=== PATIENT | male | born 1965 | race Caucasian/White ===

== ENCOUNTER 2019-09-07 11:50 | Inpatient (IN) | payer MEDICAID, OTHER ==
[~2019-09-07] VITALS: Ht 188 cm; Wt 110.2 kg
--- NOTE | 2019-09-07 12:00 | NUR ---
CAME IN FOR VOMITING SINCE 2 AM. ' ABDOMINAL PAIN.NAUSEA/VOMITING STARTED LAST NIGHT'. PATIENT DESCRIBED VOMIT DARK COLOR, COFFEE GROUND IN APPEARANCE AND DARK REDDISH BROWN IN APPEARANCE. PATIENT DIAPHORETIC UPON ARRIVAL IN ED. TO ER BED 9, HOOKED TO MONITOR, CHANGED TO HOSP GOWN, AWAITING MD FREDERICK.
--- NOTE | 2019-09-07 12:05 | NUR ---
EVALUATION MANAGER DEGRASSE AT BEDSIDE
[2019-09-07] MEDS ORDERED: ONDANSETRON HCL/PF 4 MG/2 ML VIAL ONE (12:17)
[2019-09-07] MEDS ORDERED: PANTOPRAZOLE 40 MG VIAL ONE (12:17)
[2019-09-07 12:20] LABS: BASOPHILS % (AUTO) 0.4 % (0.0-2.0); EOSINOPHILS % (AUTO) 0.2 % (0.0-6.0); HEMATOCRIT 47 % (39-51); HEMOGLOBIN 15.9 g/dL (13.5-17.5); LYMPHOCYTES # (AUTO) 1.3 /CMM (0.8-4.8); LYMPHOCYTES % (AUTO) 11.6 % (20.0-44.0); MEAN CORPUSCULAR HGB CONC 34 g/dl (31.0-36.0); MEAN CORPUSCULAR VOLUME 93 fL (80-96); MONOCYTES # (AUTO) 1.1 /CMM (0.1-1.30); MONOCYTES % (AUTO) 9.4 % (2.0-12.0); NEUTROPHILS # (AUTO) 8.8 /CMM (1.8-8.9); NEUTROPHILS % (AUTO) 78.4 % (43.0-81.0); PLATELET COUNT (AUTO) 218 /CMM (150-450); RED BLOOD CELL COUNT(AUTO) 5.02 MIL/uL (4.5-6.0); WHITE BLOOD COUNT (AUTO) 11.3 K/uL (4.3-11.0)
[2019-09-07 12:28] LABS: CALCIUM, SERUM 9.8 mg/dL (8.5-10.1); CREATININE 1.3 mg/dL (0.6-1.3); POTASSIUM 4.1 mmol/L (3.5-5.1)
[2019-09-07] MEDS ORDERED: PANTOPRAZOLE 40 MG VIAL IV ONE (12:30)
[2019-09-07] MEDS ORDERED: IV NS 0.9% 1,000 ML BAG IV ONE ×2 (12:30)
[2019-09-07] MEDS ORDERED: ONDANSETRON HCL/PF 4 MG/2 ML VIAL IVP ONE (12:30)
--- NOTE | 2019-09-07 12:31 | NUR ---
PHOTOGRAPHIC LITHOGRAPHER AT BEDSIDE
[2019-09-07 12:33] LABS: ALBUMIN 3.9 g/dL (3.4-5.0); BILIRUBIN,DIRECT 0.2 mg/dL (0.0-0.2); TOTAL PROTEIN, SERUM 7.4 g/dL (6.4-8.2)
--- NOTE | 2019-09-07 12:44 | NUR ---
[facility] paged for gi consult with Dr. Guo. Waiting for call back.
--- NOTE | 2019-09-07 12:57 | NUR ---
EPIC PAGED waiting for call back
[2019-09-07] MEDS ORDERED: [UNRECOGNIZED DRUG - OTHER] (13:12)
--- NOTE | 2019-09-07 13:15 | NUR ---
called rn sup for REINA bed 9 Addendum: 09/07/19 at 1315 by PARISH waiting for REINA bed assignment
--- NOTE | 2019-09-07 14:22 | NUR ---
REPORT GIVEN TO MALORIE
--- NOTE | 2019-09-07 15:10 | NUR ---
RN OPENING NOTES RECEIVED PATIENT A DIRECT ADMIN FROM THE ED. PT WAS BROUGHT IN VIA GURNEY BUT WAS ABLE TO WALK FROM HIS GURNEY TO HIS BED. HE IS AOX4, VERBAL, AND AMBULATORY. HE IS ON RA, TOLERATING WELL, NO S/SX OF RESP DISTRESS OR SOB. UPON AUSCULTATION, LUNG AKINS SOUND CLEAR, CHEST RISES AND FALLS EVENLY. BILATERAL UPPER AND LOWER EXTREMITIES ARE WNL. EYES ARE PERRLA. BOWELS SOUND HYPOACTIVE IN ALL 4 QUADRANTS, PT STAT PAIN OF 4/10 IN ABDOMEN. MD MADE AWARE OF PATIENT'S ARRIVAL, WAITING FOR ADMITTING ORDERS. SAFETY MEASURES HAVE BEEN IMPLEMENTED, CALL LIGHT IS WITHIN REACH, BED IS IN LOWEST AND LOCKED POSITION, SIDE RIALS UP X2, WILL CONTINUE TO MONITOR FOR ANY CHANGES.
[2019-09-07 16:00] VITALS: BP 136/88
[2019-09-07] MEDS ORDERED: MAGNESIUM HYDROXIDE 30 ML UDC PO PRN (16:30)
[2019-09-07] MEDS ORDERED: ACETAMINOPHEN 325 MG TABLET PO PRN (16:30)
[2019-09-07] MEDS ORDERED: HYDROCODONE/APAP 5/325MG 1 EACH TABLET PO PRN (16:30)
[2019-09-07] MEDS ORDERED: Z GUARD REMEDY 2 OZ OINT TP PRN (16:30)
[2019-09-07] MEDS ORDERED: ONDANSETRON HCL/PF 4 MG/2 ML VIAL IVP PRN (16:30)
[2019-09-07] MEDS ORDERED: MAG HYDROX/AL HYDROX/SIMETH 30 ML UDC PO PRN (16:30)
[2019-09-07] MEDS: IV D5/0.45 NACL 1,000 ML IV PRN (17:21)
[2019-09-07] MEDS: PANTOPRAZOLE 40 MG VIAL IV SCH (17:21)
--- NOTE | 2019-09-07 19:12 | NUR ---
RN CLOSING NOTES PATIENT IS RESTING COMFORTABLY IN BED, SHOWS NO S/SX OF RESP DISTRESS OR SOB. PT IS UPSET THAT HE CANNOT EAT ANYTHING BUT VERBALIZED HIS UNDERSTANDING TO WHY HIS DIET WAS ORDERED. PT IS SCHEDULED TO HAVE EGD TOMORROW AM. NO ACUTE CHANGES OCCURRED THROUGHOUT THE SHIFT, VITAL SIGNS ARE STABLE, PT NEEDS HAVE BEEN MET. SAFETY MEASURES HAVE BEEN IMPLEMENTED, CALL LIGHT IS WITHIN REACH, BED IS IN LOWEST AND LOCKED POSITION, SIDE RIALS UP X2, WILL ENDORSE TO NIGHTSHIFT RN FOR CONTINUITY OF CARE.
[2019-09-07 20:00] VITALS: BP 152/112
[2019-09-07] MEDS: ZOLPIDEM TARTRATE 5 MG TABLET PO PRN (22:38)
[2019-09-08] VITALS (7 sets, daily range): BP systolic 131–155; BP diastolic 84–112
[2019-09-08 06:23] LABS: CALCIUM, SERUM 8.7 mg/dL (8.5-10.1); CREATININE 1.1 mg/dL (0.6-1.3); MAGNESIUM 2.1 mg/dL (1.8-2.4); PHOSPHORUS 3.7 mg/dL (2.5-4.9); POTASSIUM 3.6 mmol/L (3.5-5.1)
[2019-09-08 06:54] LABS: BASOPHILS % (AUTO) 0.4 % (0.0-2.0); EOSINOPHILS % (AUTO) 2.3 % (0.0-6.0); HEMATOCRIT 40 % (39-51); HEMOGLOBIN 13.9 g/dL (13.5-17.5); LYMPHOCYTES # (AUTO) 2.1 /CMM (0.8-4.8); LYMPHOCYTES % (AUTO) 28.8 % (20.0-44.0); MEAN CORPUSCULAR HGB CONC 35 g/dl (31.0-36.0); MEAN CORPUSCULAR VOLUME 92 fL (80-96); MONOCYTES # (AUTO) 0.7 /CMM (0.1-1.30); MONOCYTES % (AUTO) 9.5 % (2.0-12.0); NEUTROPHILS # (AUTO) 4.4 /CMM (1.8-8.9); PLATELET COUNT (AUTO) 174 /CMM (150-450); RED BLOOD CELL COUNT(AUTO) 4.35 MIL/uL (4.5-6.0); WHITE BLOOD COUNT (AUTO) 7.5 K/uL (4.3-11.0)
[2019-09-08] MEDS: PANTOPRAZOLE 40 MG VIAL IV SCH ×2 (08:25→21:24)
[2019-09-08] MEDS ORDERED: MIDAZOLAM HCL 2 MG/2ML VIAL ONE (08:36)
[2019-09-08] MEDS ORDERED: EPINEPHRINE (1:10,000) SYRINGE 1 MG/10 ML DISP.SYRIN ONE (09:06)
[2019-09-08] MEDS ORDERED: HYDROMORPHONE 1 MG/1 ML DISP.SYRIN ONE (09:35)
[2019-09-08] MEDS ORDERED: ONDANSETRON HCL/PF 4 MG/2 ML VIAL ONE (10:00)
--- NOTE | 2019-09-08 11:34 | NUR ---
RECEIVED PATIENT BACK FROM EGD. AWAKE, ALERT, VITALS STABLE. NO ACUTE DISTRESS NOTED. ICE CHIPS GIVEN, ORDER TO ADVANCE DIET TOLERATED
[2019-09-08] MEDS: PROPRANOLOL HCL 10 MG TABLET PO SCH (16:37)
--- NOTE | 2019-09-08 19:00 | NUR ---
MS RN closing No episodes of vomiting noted today. Tolerated clear liquid diet with "a little bit" of nausea for lunch and dinner. Remains A/Ox4, asking for Ambien to help him sleep. BP noted to be elevated, see vitals. Skyla Shankar NP aware. Ambulated to bathroom. L AC 18G intact and patent. Endorsed to moises TOVAR for LILY Addendum: 09/08/19 at 1949 by MARIA DEL ROSARIO [place] RN patient denies taking HTN meds at home and is requesting prescription. Skyla Shankar NP aware, received new order for propranolol, patient educated on side effects/emergency symptoms to report. no chest pain or SOB noted
--- NOTE | 2019-09-08 19:05 | NUR ---
MS RN NOTE RECEIVED PT IN STABLE CONDITION A/O X4, CURRENTLY WATCHING TV. NO SIGNS OF SOB OR DISTRESS. NO COMPLAINTS OF PAIN OR N/V. IV IN LAC #[address] WITH IVF INFUSING. ALL CURRENT NEEDS ATTENDED. TO BED LOW, LOCKED, UPPER RAILS UP, AND CALL LIGHT WITHIN REACH. WILL CONT. TO MONITOR.
[2019-09-08] MEDS: ZOLPIDEM TARTRATE 5 MG TABLET PO PRN (21:31)
[2019-09-09] MEDS: IV D5/0.45 NACL 1,000 ML IV PRN (02:23)
[2019-09-09 04:00] VITALS: BP 134/90
--- NOTE | 2019-09-09 06:20 | NUR ---
MS RN NOTE PT REMAINS IN STABLE CONDITION A/O X4, CURRENTLY RESTING IN BED. NO SIGNS OF SOB OR DISTRESS. NO COMPLAINTS OF PAIN OR N/V. IV IN LAC #[address] WITH IVF INFUSING. ALL CURRENT NEEDS ATTENDED. TO BED LOW, LOCKED, UPPER RAILS UP, AND CALL LIGHT WITHIN REACH. WILL CONT. TO MONITOR AND ENDORSE TO NEXT SHIFT FOR LILY.
[2019-09-09 07:40] LABS: BASOPHILS % (AUTO) 0.6 % (0.0-2.0); EOSINOPHILS % (AUTO) 3.3 % (0.0-6.0); HEMATOCRIT 34 % (39-51); HEMOGLOBIN 11.4 g/dL (13.5-17.5); LYMPHOCYTES # (AUTO) 1.5 /CMM (0.8-4.8); LYMPHOCYTES % (AUTO) 27.7 % (20.0-44.0); MEAN CORPUSCULAR HGB CONC 34 g/dl (31.0-36.0); MEAN CORPUSCULAR VOLUME 93 fL (80-96); MONOCYTES # (AUTO) 0.6 /CMM (0.1-1.30); MONOCYTES % (AUTO) 12.3 % (2.0-12.0); NEUTROPHILS # (AUTO) 2.9 /CMM (1.8-8.9); NEUTROPHILS % (AUTO) 56.1 % (43.0-81.0); PLATELET COUNT (AUTO) 127 /CMM (150-450); RED BLOOD CELL COUNT(AUTO) 3.63 MIL/uL (4.5-6.0); WHITE BLOOD COUNT (AUTO) 5.2 K/uL (4.3-11.0)
[2019-09-09 07:41] LABS: CALCIUM, SERUM 8.3 mg/dL (8.5-10.1); CREATININE 0.9 mg/dL (0.6-1.3); MAGNESIUM 1.9 mg/dL (1.8-2.4); POTASSIUM 3.5 mmol/L (3.5-5.1)
[2019-09-09 08:00] VITALS: BP 154/98
[2019-09-09 08:58] VITALS: BP 154/98
[2019-09-09] MEDS: PROPRANOLOL HCL 10 MG TABLET PO SCH (08:58)
[2019-09-09] MEDS: PANTOPRAZOLE 40 MG VIAL IV SCH (08:59)
[2019-09-09] MEDS ORDERED: PROP10TA68 PO (09:30)
[2019-09-09] MEDS ORDERED: PANT40TA2 PO (09:30)
[2019-09-09] MEDS ORDERED: OMEP20TA20 PO (14:12)
--- NOTE | 2019-09-09 15:43 | NUR ---
rn notes PATIENT WAS DISCHARGED IN STABLE CONDITION ABLE TO WALK SAFELY. FRIEND WILL PICK HIM UP AT THE LOBBY. IV REMOVED. ID BAND REMOVED.
== END 2019-09-09 15:41 | disposition home or self-care (01) | DRG 242 ==
LOC: ER 11:53 → TELE-TD 14:34 → TELE1 20:51 → MEDSG1 09-08 10:18
PROVIDERS: ADMIT Hospitalist; ATTEND Nurse Practitioner Acute Care
DX: K22.6 Gastro-esophageal laceration-hemorrhage syndrome (principal); D72.829 Elevated white blood cell count, unspecified; F17.210 Nicotine dependence, cigarettes, uncomplicated; I10 Essential (primary) hypertension; K44.9 Diaphragmatic hernia without obstruction or gangrene; E66.9 Obesity, unspecified; Z68.31 Body mass index [BMI] 31.0-31.9, adult; T50.995A Adverse effect of other drugs, medicaments and biological substances, initial encounter; Y92.009 Unspecified place in unspecified non-institutional (private) residence as the place of occurrence of the external cause; F10.10 Alcohol abuse, uncomplicated; Z87.11 Personal history of peptic ulcer disease
CPT/HCPCS: 36415; 71045-TC; 80048-TC; 80061-TC; 80076-TC; 83690-TC; 83735-TC; 84100-TC; 84484-TC; 85025-TC; 85730-TC; 86850-TC; 87081-TC; C9113; G0378; J0171; J1170; J2250; J2405; J2704; J3490; J7030

== ENCOUNTER 2019-10-18 06:25 | Emergency (ER) | payer OTHER ==
[~2019-10-18] VITALS: Ht 185.4 cm; Wt 99.8 kg
[~2019-10-18 06:25] MED LIST: OMEP20TA20 PO; PROP10TA68 PO; [UNRECOGNIZED DRUG - OTHER]
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
[2019-10-18] MEDS ORDERED: AMLODIPINE BESYLATE 5 MG TABLET ONE (06:53)
[2019-10-18] MEDS ORDERED: AMLODIPINE BESYLATE 5 MG TABLET PO ONE (07:00)
[2019-10-18 07:16] LABS: BASOPHILS % (AUTO) 0.6 % (0.0-2.0); EOSINOPHILS % (AUTO) 1.1 % (0.0-6.0); HEMATOCRIT 46 % (39-51); HEMOGLOBIN 15.9 g/dL (13.5-17.5); LYMPHOCYTES # (AUTO) 1.3 /CMM (0.8-4.8); LYMPHOCYTES % (AUTO) 23.3 % (20.0-44.0); MEAN CORPUSCULAR HGB CONC 35 g/dl (31.0-36.0); MEAN CORPUSCULAR VOLUME 90 fL (80-96); MONOCYTES # (AUTO) 0.6 /CMM (0.1-1.30); NEUTROPHILS # (AUTO) 3.8 /CMM (1.8-8.9); PLATELET COUNT (AUTO) 201 /CMM (150-450); RED BLOOD CELL COUNT(AUTO) 5.08 MIL/uL (4.5-6.0); WHITE BLOOD COUNT (AUTO) 5.8 K/uL (4.3-11.0)
[2019-10-18 07:17] LABS: CALCIUM, SERUM 8.8 mg/dL (8.5-10.1); POTASSIUM 3.4 mmol/L (3.5-5.1)
[2019-10-18 07:23] LABS: BILIRUBIN,DIRECT 0.2 mg/dL (0.0-0.2); BILIRUBIN,TOTAL 0.7 mg/dL (0.2-1.0); TOTAL PROTEIN, SERUM 7.2 g/dL (6.4-8.2)
[2019-10-18] MEDS ORDERED: LORAZEPAM 1 MG TABLET ONE (07:39)
--- NOTE | 2019-10-18 07:42 | NUR ---
PATIENT AMBULATES INDEPENDENTLY.
[2019-10-18] MEDS ORDERED: LORAZEPAM 1 MG TABLET PO ONE (08:00)
[2019-10-18] MEDS ORDERED: CLONIDINE HCL 0.1 MG TABLET ONE (08:15)
[2019-10-18] MEDS ORDERED: CLONIDINE HCL 0.1 MG TABLET PO ONE (08:30)
--- NOTE | 2019-10-18 09:30 | NUR ---
PATIENT DENIES PAIN AT THIS TIME. MD AWARE OF RECENT BLOOD PRESSURE READINGS, OK TO BE DISCHARGED. PATIENT AGREED TO GO HOME AND TO FOLLOW UP WITH PRIMARY DOCTOR. Patient discharged to home in stable condition. Written and verbal after care instructions given. Patient verbalizes understanding of instruction.
[2019-10-18 09:31] VITALS: BP 180/99
[2020-02-26] MEDS ORDERED: SERT50TA PO (11:55)
[2020-02-26] MEDS ORDERED: ASPI-1169 PO (11:55)
[2020-02-26] MEDS ORDERED: NYST15CR2 TP (11:55)
[2020-02-26] MEDS ORDERED: ATOR40TA PO (11:55)
[2020-02-26] MEDS ORDERED: VALS80TA2 PO (11:55)
== END 2019-10-18 09:31 | disposition home or self-care (01) ==
LOC: ER 06:26
DX: I10 Essential (primary) hypertension (principal); R07.89 Other chest pain; R00.0 Tachycardia, unspecified; Z98.890 Other specified postprocedural states; Z60.2 Problems related to living alone; Z79.899 Other long term (current) drug therapy; Z88.8 Allergy status to other drugs, medicaments and biological substances
CPT/HCPCS: 36415; 71046; 80048-TC; 80076-TC; 84484-TC; 85025-TC

== ENCOUNTER 2020-02-01 15:08 | Emergency (ER) | payer OTHER ==
[~2020-02-01] VITALS: Ht 185.4 cm; Wt 113.4 kg
--- NOTE | 2020-02-01 15:12 | NUR ---
PATIENT SEEN AND EVALUATED BY DR. MARTINS
--- NOTE | 2020-02-01 15:15 | NUR ---
BIB ra c.o head lac s/p syncopal episode during deep breathing exercise. Patient a/ox4, breathing even and unlabored, head lac with mild bleeding at this time. Gauzed removed. needs attended kept comfortable.
[2020-02-01 15:31] LABS: BASOPHILS % (AUTO) 0.6 % (0.0-2.0); EOSINOPHILS % (AUTO) 2.2 % (0.0-6.0); HEMATOCRIT 48 % (39-51); HEMOGLOBIN 16.6 g/dL (13.5-17.5); LYMPHOCYTES # (AUTO) 1.4 /CMM (0.8-4.8); LYMPHOCYTES % (AUTO) 22.3 % (20.0-44.0); MEAN CORPUSCULAR HGB CONC 34 g/dl (31.0-36.0); MEAN CORPUSCULAR VOLUME 88 fL (80-96); MONOCYTES # (AUTO) 0.7 /CMM (0.1-1.30); MONOCYTES % (AUTO) 11.4 % (2.0-12.0); NEUTROPHILS % (AUTO) 63.5 % (43.0-81.0); PLATELET COUNT (AUTO) 113 /CMM (150-450); RED BLOOD CELL COUNT(AUTO) 5.52 MIL/uL (4.5-6.0); WHITE BLOOD COUNT (AUTO) 6.3 K/uL (4.3-11.0)
[2020-02-01 15:39] LABS: CALCIUM, SERUM 9.3 mg/dL (8.5-10.1); CARBON DIOXIDE 29 mmol/L (21-32); CHLORIDE 97 mmol/L (98-107); CREATININE 1.3 mg/dL (0.6-1.3); GLUCOSE 123 mg/dL (74-106); POTASSIUM 3.7 mmol/L (3.5-5.1); SODIUM SERUM 135 mmol/L (136-145); UREA NITROGEN, BLOOD 20 mg/dL (7-18)
[2020-02-01] MEDS ORDERED: LIDOCAINE 1%-EPI 1:100,000 20 ML VIAL ONE (15:54)
[2020-02-01] MEDS ORDERED: LIDOCAINE 1%-EPI 1:100,000 50 ML VIAL IJ ONE (16:00)
--- NOTE | 2020-02-01 17:06 | NUR ---
patient's head covered with clean dry dressing. [place] intact. Post suture/staple care instruction provided. Patient discharged to home in stable condition. Written and verbal after care instructions given. Patient verbalizes understanding of instruction. Patient denies dizziness or headache. No distress noted.
[2020-02-01 17:07] VITALS: BP 163/105
== END 2020-02-01 17:07 | disposition home or self-care (01) ==
LOC: ER 15:12
DX: S01.01XA Laceration without foreign body of scalp, initial encounter (principal); R55 Syncope and collapse; I10 Essential (primary) hypertension; Z98.890 Other specified postprocedural states; Z88.8 Allergy status to other drugs, medicaments and biological substances; Z79.899 Other long term (current) drug therapy; W22.8XXA Striking against or struck by other objects, initial encounter; Y93.89 Activity, other specified; Y92.89 Other specified places as the place of occurrence of the external cause; Y99.8 Other external cause status
CPT/HCPCS: 12002; 36415; 70450; 71045; 80048; 84484; 85025; 93005 ×2; 99285; A6403; J3490 ×2

== ENCOUNTER 2020-02-04 16:37 | Emergency (ER) | payer OTHER ==
[~2020-02-04] VITALS: Ht 185.4 cm; Wt 107.0 kg
[2020-02-04 17:06] VITALS: BP 149/103
== END 2020-02-04 17:27 | disposition home or self-care (01) ==
LOC: ER 16:42
DX: S01.81XD Laceration without foreign body of other part of head, subsequent encounter (principal); R55 Syncope and collapse; I10 Essential (primary) hypertension; Z98.890 Other specified postprocedural states; Z88.8 Allergy status to other drugs, medicaments and biological substances; Z79.899 Other long term (current) drug therapy; X58.XXXD Exposure to other specified factors, subsequent encounter
CPT/HCPCS: 99281; A6403

== ENCOUNTER 2020-02-12 13:47 | Emergency (ER) | payer OTHER ==
[~2020-02-12] VITALS: Ht 185.4 cm; Wt 104.3 kg
[2020-02-12 13:53] VITALS: BP 146/104
--- NOTE | 2020-02-12 14:58 | NUR ---
Patient discharged to home in stable condition. Written and verbal after care instructions given. Patient verbalizes understanding of instruction.
--- NOTE | 2020-02-12 14:58 | NUR ---
SUTURE REMOVE BY .
== END 2020-02-12 14:59 | disposition home or self-care (01) ==
LOC: ER 13:50
DX: S01.01XD Laceration without foreign body of scalp, subsequent encounter (principal); I10 Essential (primary) hypertension; Z98.890 Other specified postprocedural states; Z88.8 Allergy status to other drugs, medicaments and biological substances; Z60.2 Problems related to living alone; Z79.899 Other long term (current) drug therapy; X58.XXXD Exposure to other specified factors, subsequent encounter

== ENCOUNTER 2020-02-25 16:31 | Inpatient (IN) | payer OTHER ==
[~2020-02-25] VITALS: Ht 190.5 cm; Wt 105.2 kg
--- NOTE | 2020-02-25 16:38 | NUR ---
CAME IN FOR PRESSURE LIKE L SIDED CHEST PAIN SINCE THIS MORNING, ALSO C/O HIGH BLOOD PREESURE. RAN OUT OF B/P MEDS, TO ER BED 9, HOOKED TO MAJOR GIFTS DIRECTOR AND POX, 177/112MMHG READING, CHANGED TO HOSP GOWN, WARM BLANKET PROVIDED, AAO X 4, BREATHING EVEN AND UNLABORED. DR SHERIDAN AT BEDSIDE
[2020-02-25] MEDS ORDERED: NITROGLYCERIN 0.4 MG/TAB BOTTLE ONE (16:53)
[2020-02-25 16:58] LABS: BASOPHILS % (AUTO) 0.4 % (0.0-2.0); EOSINOPHILS % (AUTO) 0.9 % (0.0-6.0); HEMATOCRIT 49 % (39-51); HEMOGLOBIN 16.8 g/dL (13.5-17.5); LYMPHOCYTES # (AUTO) 1.2 /CMM (0.8-4.8); LYMPHOCYTES % (AUTO) 16.1 % (20.0-44.0); MEAN CORPUSCULAR HGB CONC 34 g/dl (31.0-36.0); MEAN CORPUSCULAR VOLUME 89 fL (80-96); MONOCYTES # (AUTO) 0.7 /CMM (0.1-1.30); MONOCYTES % (AUTO) 9.2 % (2.0-12.0); NEUTROPHILS # (AUTO) 5.4 /CMM (1.8-8.9); NEUTROPHILS % (AUTO) 73.4 % (43.0-81.0); PLATELET COUNT (AUTO) 198 /CMM (150-450); WHITE BLOOD COUNT (AUTO) 7.3 K/uL (4.3-11.0)
[2020-02-25] MEDS ORDERED: NITROGLYCERIN 0.4 MG/TAB BOTTLE SL ONE (17:00)
[2020-02-25 17:06] LABS: CALCIUM, SERUM 9.4 mg/dL (8.5-10.1); CARBON DIOXIDE 28 mmol/L (21-32); CHLORIDE 94 mmol/L (98-107); CREATININE 1.1 mg/dL (0.6-1.3); GLUCOSE 103 mg/dL (74-106); POTASSIUM 4.1 mmol/L (3.5-5.1); SODIUM SERUM 133 mmol/L (136-145); UREA NITROGEN, BLOOD 9 mg/dL (7-18)
[2020-02-25 17:19] LABS: ALANINE AMINOTRANSFERASE 76 U/L (12-78); ALBUMIN 4.2 g/dL (3.4-5.0); ALKALINE PHOSPHATASE 68 U/L (46-116); ASPARTATE AMINOTRANSFERASE 66 U/L (15-37); B-TYPE NATRIURETIC PEPTIDE 73 PG/ML (0-125); BILIRUBIN,DIRECT 0.2 mg/dL (0.0-0.2); TOTAL PROTEIN, SERUM 7.5 g/dL (6.4-8.2)
[2020-02-25 17:22] LABS: D-DIMER 1.16 mg/L(FEU (0.17-0.50)
[2020-02-25] MEDS ORDERED: PROP10TA10 PO (17:23)
--- NOTE | 2020-02-25 17:45 | NUR ---
WHEELED OUT VIA RNEY FOR CT SCAN
[2020-02-25] MEDS ORDERED: CT SWABBABLE VALVE TRANS SET 1 EA INFUS.SET MC ONE (17:49)
[2020-02-25] MEDS ORDERED: IOHEXOL-350 100 ML VIAL IV ONE (17:49)
[2020-02-25] MEDS ORDERED: IV NS 0.9% 250 ML IV ONE (17:49)
--- NOTE | 2020-02-25 18:15 | NUR ---
CALLED RAJAN FOR FOLLOW UP READ FOR CT PULMO ANGIO.
--- NOTE | 2020-02-25 18:55 | NUR ---
GAVE MOVESHEET TO ADMITTING FOR INSURANCE AUTH
[2020-02-25] MEDS ORDERED: ASPIRIN 81 MG TAB.CHEW PO ONE (19:00)
[2020-02-25] MEDS ORDERED: ASPIRIN 81 MG TAB.CHEW ONE (19:16)
--- NOTE | 2020-02-25 19:20 | NUR ---
REPORT GIVEN TO YAQUELIN TOVAR FOR LILY
--- NOTE | 2020-02-25 19:49 | NUR ---
PER ADMITTING, AWAITING SUPERINTENDENT CIRCUS CALL BACK FOR CLINICAL REPORT
[2020-02-25] MEDS ORDERED: AMLODIPINE BESYLATE 5 MG TABLET ONE (20:16)
--- NOTE | 2020-02-25 20:26 | NUR ---
PT GIVEN AMLODIPINE 5MG PER MD ORDER. BP 176/106.
[2020-02-25] MEDS ORDERED: AMLODIPINE BESYLATE 5 MG TABLET PO ONE (20:30)
--- NOTE | 2020-02-25 20:41 | NUR ---
REPORT GIVEN FOR LILY
[2020-02-25] MEDS ORDERED: ACETAMINOPHEN 325 MG TABLET PO PRN (21:00)
[2020-02-25] MEDS ORDERED: PROPRANOLOL HCL 10 MG TABLET PO SCH (21:00)
[2020-02-25] MEDS ORDERED: HYDROCODONE/APAP 5/325MG 1 EACH TABLET PO PRN (21:00)
[2020-02-25] MEDS ORDERED: ONDANSETRON HCL/PF 4 MG/2 ML VIAL IVP PRN (21:00)
[2020-02-25] MEDS ORDERED: MORPHINE SULFATE INJ 2 MG/ML DISP.SYRIN IV PRN (21:00)
[2020-02-25] MEDS ORDERED: hydrALAZINE HCL IV 20 MG VIAL IV PRN (21:00)
[2020-02-25] MEDS ORDERED: MAGNESIUM HYDROXIDE 30 ML UDC PO PRN (21:00)
[2020-02-25] MEDS ORDERED: NITROGLYCERIN 0.4 MG/TAB BOTTLE SL PRN (21:00)
--- NOTE | 2020-02-25 21:00 | NUR ---
PT TRANSFERED PER ACLS PROTOCOL
[2020-02-25 21:05] VITALS: BP 165/112
--- NOTE | 2020-02-25 21:05 | NUR ---
LAW FIRM PARTNERPROP SETTER NOTE RECEIVED PATIENT VIA GURNEY. AMBULATED TO BED WITH STEADY GAIT. TOLERATING ROOM AIR. RESPIRATIONS ARE EVEN AND UNLABORED. NO S/S SOB NOTED. C/O CHEST PAIN 12/21, NONRADIATING. EXTERNAL TELE MONITOR READS SINUS RHYTHM HR 77. IN NO APPARENT DISTRESS. IV ACCESS IN RAC#20 PATENT AND SALINE LOCKED. COMPLETED INITIAL PHYSICAL ASSESSMENT WELL SKIN ASSESSMENT, SKIN INTACT. BELONGINGS LIST AND VITAL SIGNS COMPLETED BY REGIONAL DEDICATED TRUCK DRIVER. PATIENT REFUSED TO PLACE MONEY IN LOCK BOX. BED IS LOW AND LOCKED, HOB ELEVATED IN SEMI FOWLERS, SIDE RIALS UP X2. CALL LIGHT WITHIN REACH. WILL CONTINUE TO MONITOR.
--- NOTE | 2020-02-25 21:29 | NUR ---
MATCHBOOK MAKER NOTE CALLED STAFF WRITER , DR. RANGEL TO NOTIFY PATIENTS REQUEST FOR A SLEEPING MEDICATION. MD TELEPHONE ORDERED AMBIEN 5MG HS PRN. ORDER READ BACK NOTED AND CARRIED OUT. WILL CONTINUE TO MONITOR.
[2020-02-25] MEDS ORDERED: IV NS 0.9% 500 ML IV ONE (21:30)
--- NOTE | 2020-02-25 21:44 | NUR ---
REAL ESTATE DIRECTOR NOTE ADMINISTERED PRN AMBIEN 5MG PER PATIENT REQUEST FOR SLEEP. WILL CONTINUE TO MONITOR.
[2020-02-25 22:00] VITALS: BP 156/108
[2020-02-25] MEDS ORDERED: ZOLPIDEM TARTRATE 5 MG TABLET PO PRN (22:00)
--- NOTE | 2020-02-25 22:01 | NUR ---
EMPLOYEE BENEFITS MANAGER NOTE ADMINISTERED PRN NORCO 5/325 FOR PAIN 3/10 IN CHEST. WILL CONTINUE TO MONITOR.
[2020-02-25] MEDS: MAG HYDROX/AL HYDROX/SIMETH 30 ML UDC PO PRN (23:45)
--- NOTE | 2020-02-25 23:47 | NUR ---
MAGISTRATE NOTE ADMINISTERED PRN MAALOX FOR ACID REFLEX, REQUESTED BY PATIENT. WILL CONTINUE TO MONITOR.
[2020-02-26] VITALS: BP 148/95
[2020-02-26 04:00] VITALS: BP 148/105
[2020-02-26 04:56] LABS: BASOPHILS % (AUTO) 0.5 % (0.0-2.0); EOSINOPHILS % (AUTO) 1.4 % (0.0-6.0); HEMATOCRIT 48 % (39-51); HEMOGLOBIN 16.5 g/dL (13.5-17.5); LYMPHOCYTES # (AUTO) 1.1 /CMM (0.8-4.8); LYMPHOCYTES % (AUTO) 17.3 % (20.0-44.0); MEAN CORPUSCULAR HGB CONC 35 g/dl (31.0-36.0); MEAN CORPUSCULAR VOLUME 89 fL (80-96); MONOCYTES # (AUTO) 0.7 /CMM (0.1-1.30); MONOCYTES % (AUTO) 11.4 % (2.0-12.0); NEUTROPHILS # (AUTO) 4.4 /CMM (1.8-8.9); NEUTROPHILS % (AUTO) 69.4 % (43.0-81.0); PLATELET COUNT (AUTO) 150 /CMM (150-450); RED BLOOD CELL COUNT(AUTO) 5.38 MIL/uL (4.5-6.0); WHITE BLOOD COUNT (AUTO) 6.3 K/uL (4.3-11.0)
[2020-02-26 05:19] LABS: THYROID STIMULATING HORMONE 2.175 uIU/mL (0.358-3.74)
[2020-02-26] MEDS: MAG HYDROX/AL HYDROX/SIMETH 30 ML UDC PO PRN (05:46)
--- NOTE | 2020-02-26 05:46 | NUR ---
DOWEL SETTING MACHINE OPERATOR NOTE ADMINISTERS PRN MAALOX 30ML PER PATIENT REQUEST FOR HEART BURN. WILL CONTINUE TO MONITOR.
[2020-02-26 06:09] LABS: ALBUMIN 3.7 g/dL (3.4-5.0); CALCIUM, SERUM 8.9 mg/dL (8.5-10.1); MAGNESIUM 2.1 mg/dL (1.8-2.4); PHOSPHORUS 3.8 mg/dL (2.5-4.9); POTASSIUM 3.9 mmol/L (3.5-5.1)
--- NOTE | 2020-02-26 06:29 | NUR ---
SYSTEM AUDITOR CLOSING NOTE PATIENT IN BED. REMAINS TOLERATING ROOM AIR. RESPIRATIONS ARE EVEN AND UNLABORED. NO SOB NOTED. PAIN MANAGED WITH NORCO 5/325. EXTERNAL TELE MONITOR READS SINUS RHYTHM HR 77. NO DISTRESS NOTED. IV ACCESS MAINTAINED IN RAC#20 RUNNING NS@75ML/HR. BED REMAINS LOW AND LOCKED, HOB ELEVATED IN SEMI FOWLERS, SIDE RIALS UP X2. CALL LIGHT WITHIN REACH. WILL ENDORSE TO NEXT SHIFT.
--- NOTE | 2020-02-26 07:44 | NUR ---
HIDE DROPPER NOTES PATIENT IN BED SLEEPING NO SOB OR ACUTE DISTRESS NOTED. BED IN LOW LOCKED POSITION. CALL LIGHT WITHIN REACH. WILL CONTINUE TO MONITOR.
[2020-02-26] MEDS ORDERED: NITROGLYCERIN 0.4 MG/TAB BOTTLE SL ONE (08:30)
[2020-02-26] MEDS ORDERED: NITROGLYCERIN 0.4 MG/TAB BOTTLE ONE (08:38)
[2020-02-26] MEDS ORDERED: METOPROLOL TARTRATE INJ 5 MG/5 ML AMPUL ONE ×3 (08:38→09:22)
[2020-02-26] MEDS ORDERED: IOHEXOL-350 100 ML VIAL IV ONE (08:47)
[2020-02-26] MEDS ORDERED: IV NS 0.9% 250 ML IV ONE (08:47)
[2020-02-26] MEDS: METOPROLOL TARTRATE 50 MG TABLET PO SCH ×4 (08:50→09:05)
[2020-02-26] MEDS ORDERED: VALSARTAN 80 MG TABLET PO SCH (09:00)
[2020-02-26] MEDS ORDERED: ASPIRIN 81 MG TAB.CHEW PO SCH (09:00)
[2020-02-26] MEDS: METOPROLOL TARTRATE INJ 5 MG/5 ML AMPUL IVP PRN ×6 (09:10→09:35)
[2020-02-26] MEDS ORDERED: ASPI-1169 PO (11:55)
[2020-02-26] MEDS ORDERED: SERT50TA PO (11:55)
[2020-02-26] MEDS ORDERED: NYST15CR2 TP (11:55)
[2020-02-26] MEDS ORDERED: VALS80TA2 PO (11:55)
[2020-02-26] MEDS ORDERED: ATOR40TA PO (11:55)
[2020-02-26] MEDS ORDERED: SERTRALINE HCL 50 MG TABLET PO SCH (12:00)
[2020-02-26] MEDS: NYSTATIN/TRIAMCIN CREAM 15 GM TUBE TP SCH ×2 (15:36→16:59)
--- NOTE | 2020-02-26 16:30 | NUR ---
MS RN NOTS PATIENT NOTED WITH BP OF 150/108 PULSE 75 NO SOB OR ACUTE DISTRESS NOTED. PATIENT ASYMPTOMATIC. DR. CARMINE MAYEN MADE AWARE ORDERS RECEIVED TO GIVE ANOTHER DOSE OF DIOVAN 160MG ONCE AND DISCHARGE PATIENT. ORDERS NOTED AND CARRIED OUT.
[2020-02-26 16:50] VITALS: BP 150/106
[2020-02-26] MEDS ORDERED: VALSARTAN 80 MG TABLET PO ONE (17:00)
--- NOTE | 2020-02-26 17:24 | NUR ---
MS RN NOTES PATIENTS BLOOD PRESSURE RECHECKED NOTED 143/93 PULSE OF 74 PATIENT OK TO BE DISCHARGED BY DR. CARMINE MAYEN .
--- NOTE | 2020-02-26 17:30 | NUR ---
MS GENERAL LEDGER BOOKKEEPER NOTE PATIENT DISCHARGED HOME IN STABLE CONDITION. DISCHARGE INSTRUCTIONS PROVIDED TO PATIENT, VERBALIZED UNDERSTANDING. DISCHARGE PROTOCOL FOLLOWED. MD AWARE OF ALL ABNORMAL TESTS. MD AWARE OF MOST RECENT VITAL SIGNS. PERIPHERAL IV REMOVED WITH MINIMAL BLEEDING. [facility] CALLED ALL NEW PRESCRIPTIONS READY. ID BAND REMOVED. PATIENT ESCORTED TO CAR.
== END 2020-02-26 17:45 | disposition home or self-care (01) | DRG 199 ==
LOC: ER 16:34 → TELE 20:38 → MED 02-26 08:25
PROVIDERS: ADMIT Nurse Practitioner Acute Care; ATTEND Nurse Practitioner Acute Care
DX: I16.0 Hypertensive urgency (principal); E87.1 Hypo-osmolality and hyponatremia; F17.210 Nicotine dependence, cigarettes, uncomplicated; Z91.19 Patient's noncompliance with other medical treatment and regimen; F41.0 Panic disorder [episodic paroxysmal anxiety]; I10 Essential (primary) hypertension; K13.21 Leukoplakia of oral mucosa, including tongue; I25.84 Coronary atherosclerosis due to calcified coronary lesion; I25.10 Atherosclerotic heart disease of native coronary artery without angina pectoris; K13.0 Diseases of lips
CPT/HCPCS: 36415; 71045-TC; 75574; 80048-TC; 80053-TC; 80061-TC; 80076-TC; 82803-TC; 83735-TC; 83880; 84100-TC; 84443-TC; 84484-TC; 85025-TC; 85378-TC; 85730-TC; 87081-TC; 93307-TC; G0378; J3490; J7040; J7050; Q9967

== ENCOUNTER 2020-04-27 18:23 | Emergency (ER) | payer OTHER ==
[~2020-04-27] VITALS: Ht 185.4 cm; Wt 99.8 kg
[~2020-04-27 18:23] MED LIST changes: +ASPI-1169 PO; +ATOR40TA PO; +NYST15CR2 TP; -OMEP20TA20 PO; +PROP10TA10 PO; -PROP10TA68 PO; +SERT50TA PO; +VALS80TA2 PO; -[UNRECOGNIZED DRUG - OTHER]
[2020-04-27 18:42] VITALS: BP 153/97
== END 2020-04-27 18:54 | disposition home or self-care (01) ==
LOC: ER 18:27
DX: D17.79 Benign lipomatous neoplasm of other sites (principal); I10 Essential (primary) hypertension; E78.5 Hyperlipidemia, unspecified; Z98.890 Other specified postprocedural states; Z60.2 Problems related to living alone; Z79.82 Long term (current) use of aspirin; Z79.899 Other long term (current) drug therapy; Z88.8 Allergy status to other drugs, medicaments and biological substances